=== PATIENT | female | born 1985 | race Caucasian/White ===

== ENCOUNTER 2020-03-22 17:40 | Outpatient (REF) | payer OTHER, SELFPAY | END 2020-03-22 17:41 | disposition home or self-care (01) | LOC: HO.LAB 17:40 | PROVIDERS: Visit Provider Internal Medicine | DX: Z20.828 Contact with and (suspected) exposure to other viral communicable diseases (principal) | CPT/HCPCS: 36415; 87635 ==

== ENCOUNTER 2020-03-25 15:07 | Outpatient (REF) | payer OTHER, SELFPAY ==
[2020-03-25 16:03] LABS: COVID-19 Test Negative (Negative)
== END 2020-03-25 15:08 | disposition home or self-care (01) ==
LOC: HO.LAB 15:07
PROVIDERS: Visit Provider Internal Medicine
DX: Z20.828 Contact with and (suspected) exposure to other viral communicable diseases (principal)
CPT/HCPCS: 36415

== ENCOUNTER → 2020-05-10 08:52 | Outpatient (BNVA) | payer OTHER, SELFPAY | PROVIDERS: Visit Provider Internal Medicine | DX: Z13.89 Encounter for screening for other disorder (principal) | CPT/HCPCS: 99202 ==

== ENCOUNTER → 2020-06-11 14:34 | Outpatient (BNVA) | payer OTHER, SELFPAY | PROVIDERS: Visit Provider Internal Medicine | DX: Z13.89 Encounter for screening for other disorder (principal) | CPT/HCPCS: 99213 ==